=== PATIENT | male | born 1980 | race Caucasian/White ===

== ENCOUNTER 2023-07-10 18:49 | Observation (INO) | payer OTHER ==
[2023-07-10] VITALS (8 sets, daily range): BP systolic 109–136; BP diastolic 59–82; PULSE 101–110; TEMP 98.1–98.2
[~2023-07-10] VITALS: Ht 182.9 cm; Wt 102.0 kg
--- NOTE | 2023-07-10 19:15 | NUR ---
pt admitted to room 324 per for appendicitis, reports pain in RLQ of abdomen, currently 2/10, received pain meds prior to leaving [facility]. IV present in LAC, patent/secure. admission assessment, intake and med req completed, Dr Birmingham here to see pt, orders rec'd, LR started infusing per gravity @100cc/hr, no order yet for consent, EXHIBIT CARPENTER will have pt sign once down in pre-op. pt's questions/concerns addressed, transferred to OR per EXHIBIT CARPENTER @ 1945 via bed.
[2023-07-10] MEDS ORDERED: PRINIVIL10 MG PO (19:27)
[2023-07-10] MEDS ORDERED: SYNTHROID0.05 MG/TA PO (19:28)
[2023-07-10] MEDS ORDERED: SYNTHROID 0.0.025 MG PO (19:29)
[2023-07-10] MEDS ORDERED: COLCRYS0.6 MG (19:30)
[2023-07-10] MEDS ORDERED: PREDNISONE 5MG5 MG (19:31)
--- NOTE | 2023-07-10 21:25 | NUR ---
pt returned to room 324 from OR per bed, awake and alert, reports pain at zero, IVF infusing per PIV in LAC, x3 lap sites to abdomen with bandaids present, cdi. pt started on clears, no N/V, advanced to regular diet. post op education given, pt wanting to sleep now. lights off, call light in reach.
[2023-07-11 00:10] VITALS: BP 125/87; PULSE 97; TEMP 98.9
[2023-07-11 01:10] VITALS: BP 111/63; PULSE 91
[2023-07-11 03:48] VITALS: BP 99/59; PULSE 90; TEMP 98.1
[2023-07-11 04:14] VITALS: BP_SYST 99
--- NOTE | 2023-07-11 06:23 | NUR ---
No c/o pain this am, no N/V, tolerated regular diet after surgery last noc. IVF dc'd, INT to LAC. bandaids x3 to abd cdi. has not been up to void since right before surgery.
[2023-07-11 07:31] VITALS: BP 119/72; PULSE 85; TEMP 98.5
--- NOTE | 2023-07-11 08:00 | NUR ---
Patient laying in bed, A&Ox4. VSS. IV CDI. SCD bilateral legs. Denies pain and discomfort. Voided, ate breakfast. No further needs expressed. Call light within reach
[2023-07-11 08:08] VITALS: BP_SYST 119
[2023-07-11] MEDS ORDERED: MOTRIN 600600 MG/TAB PO (10:00)
--- NOTE | 2023-07-11 10:48 | NUR ---
Discharge paperwork reviewed with the patient. Patient verbalized an understanding to follow doctors orders. IV removed, tip intact. Gauze and coban covering. Patient ambulated independently to awaiting vehicle. No further needs expressed
== END 2023-07-11 10:48 | disposition home or self-care (01) ==
LOC: SURG 18:49
PROVIDERS: ADMIT Surgery
DX: K35.80 Unspecified acute appendicitis (principal); G47.33 Obstructive sleep apnea (adult) (pediatric); Z87.891 Personal history of nicotine dependence
CPT/HCPCS: G0378; G0379; J1170; J7120